=== PATIENT | male | born 1970 | race Two or more races ===

== ENCOUNTER 2018-03-23 06:10 | Day surgery (SDC) | payer OTHER ==
[2018-03-23] MEDS ORDERED: ceFAZolin 1GM/100ML 100 ML IV ONE (06:58)
[2018-03-23] MEDS ORDERED: POVIDONE IODINE 10 % TOPICAL OINT 30GM TOP ONE (07:11)
[2018-03-23] MEDS ORDERED: LIDOCAINE W/ EPINEPHRINE 1 % INJ 30ML ONE (07:11)
[2018-03-23] MEDS ORDERED: BUPIVACAINE W/ EPINEPH 0.25% INJ 50ML MDV ONE (07:12)
[2018-03-23] MEDS ORDERED: LIDOCAINE 1% HCL (LOCAL ANESTH.) INJ 20ML MDV ONE (07:12)
[2018-03-23] MEDS ORDERED: BUPIVACAINE 0.25% INJ 50ML VIAL ONE (07:12)
[2018-03-23] MEDS ORDERED: ceFAZolin 1GM 2 GM in D5W 5% 100 ML IV ONE (07:15)
[2018-03-23] MEDS ORDERED: LIDOCAINE 1% (LOCAL ANESTH.) PF 5ml SDV ONE (07:21)
[2018-03-23] MEDS ORDERED: SUCCINYLCHOLINE CHLORIDE 20 MG/ML 10ML VIAL IV ONE (07:21)
[2018-03-23] MEDS ORDERED: MIDAZOLAM HCL 1MG/1ML-2 ML VIAL ONE (07:36)
[2018-03-23] MEDS ORDERED: PROPOFOL 10 MG/ML 20 ML IV ONE (07:37)
[2018-03-23] MEDS ORDERED: fentaNYL CITRATE 100 MCG/2 ML VL ONE (07:40)
[2018-03-23] MEDS ORDERED: ACCU-CHEK COMFORT CURVE STRIP VI ONE (08:00)
[2018-03-23] MEDS ORDERED: NALOXONE HCL 0.4 MG/ML VIAL IV PRN (08:00)
[2018-03-23] MEDS ORDERED: ONDANSETRON HCL 4 MG/2 ML VIAL IV ONE (08:00)
[2018-03-23] MEDS ORDERED: MORPHINE SULFATE 8mg/ml INJ SDV IV PRN (08:00)
[2018-03-23] MEDS ORDERED: KETOROLAC TROMETH 30 MG/ML 1ML VIAL ONE (08:10)
[2018-03-23] MEDS ORDERED: NEOSTIGMINE 1 MG/ML INJ (10mg/10ML VIAL) ONE (08:12)
[2018-03-23] MEDS ORDERED: GLYCOPYRROLATE 0.2 MG/ML 1ML VIAL ONE (08:12)
[2018-03-23 09:17] VITALS: BP 129/76
== END 2018-03-23 09:23 | disposition home or self-care (01) ==
LOC: SUR 06:10
PROVIDERS: ATTEND Orthopaedic Surgery Adult Reconstructive Orthopaedic Surgery
DX: M65.332 Trigger finger, left middle finger (principal); M65.342 Trigger finger, left ring finger; I10 Essential (primary) hypertension; E11.9 Type 2 diabetes mellitus without complications; K21.9 Gastro-esophageal reflux disease without esophagitis; E66.9 Obesity, unspecified; Z79.1 Long term (current) use of non-steroidal anti-inflammatories (NSAID); Z79.4 Long term (current) use of insulin; Z79.84 Long term (current) use of oral hypoglycemic drugs
CPT/HCPCS: 26055; 82962; J0330; J0690; J1885; J2250; J2704; J3010; J3490; J2001; J7060